=== PATIENT | female | born 1960 | race Caucasian/White ===

== ENCOUNTER 2016-04-17 11:00 | Outpatient (CLI) | payer OTHER | END 2016-04-17 19:55 | disposition home or self-care (01) | LOC: SMA 11:00 | PROVIDERS: ATTEND Obstetrics & Gynecology | DX: Z12.31 Encounter for screening mammogram for malignant neoplasm of breast (principal) | CPT/HCPCS: 77067; G0202 ==

== ENCOUNTER 2017-05-12 11:08 | Outpatient (CLI) | payer OTHER | END 2017-05-12 19:47 | disposition home or self-care (01) | LOC: SMA 11:08 | PROVIDERS: ATTEND Family Medicine | DX: Z12.31 Encounter for screening mammogram for malignant neoplasm of breast (principal) | CPT/HCPCS: 77067 ==

== ENCOUNTER 2018-07-02 12:51 | Outpatient (CLI) | payer BC | END 2018-07-02 21:29 | disposition home or self-care (01) | LOC: SMA 12:51 | PROVIDERS: ATTEND Family Medicine | DX: Z12.31 Encounter for screening mammogram for malignant neoplasm of breast (principal) | CPT/HCPCS: 77067 ==

== ENCOUNTER 2019-11-29 10:55 | Outpatient (CLI) | payer BC | END 2019-11-29 18:58 | disposition home or self-care (01) | LOC: SMA 10:55 | DX: Z12.31 Encounter for screening mammogram for malignant neoplasm of breast (principal) | CPT/HCPCS: 77067 ==

== ENCOUNTER 2020-12-15 11:16 | Outpatient (CLI) | payer BC | END 2020-12-15 21:03 | disposition home or self-care (01) | LOC: SMA 11:16 | PROVIDERS: ATTEND Obstetrics & Gynecology | DX: Z12.31 Encounter for screening mammogram for malignant neoplasm of breast (principal) | CPT/HCPCS: 77067 ==